=== PATIENT | male | born 1990 | race Two or more races ===

== ENCOUNTER 2024-12-26 09:35 | Day surgery (SDC) | payer MEDICAID ==
[2024-12-23 12:46] LABS: Hematocrit 46.6 % (41.0-53.0); Hemoglobin 16.2 g/dL (13.5-17.5); Mean Corpuscular Hemoglobin 31.4 pg (28.0-32.0); Mean Corpuscular Hgb Conc. 34.8 g/dL (32.0-36.0); Mean Corpuscular Volume 90.3 fL (80.0-100.0); Platelet Count (auto) 308 10^3/uL (140-450); Red Blood Cells 5.16 10^6/uL (4.5-5.90); Red Cell Distribution Width 12.9 % (11.8-14.3)
[2024-12-23 12:52] LABS: Band Neutrophils % (manual) 0; Basophils % (manual) 0 (0.0-2.0); Blast Cells 0; Metamyelocytes % 0; Myelocytes % 0; Promyelocytes % 0; Reactive Lymphocytes 0
[2024-12-23 13:12] LABS: INR 1.02 (0.9-1.15); Partial Thromboplastin Time 30.9 SEC (24.5-34.5); Prothrombin Time 10.8 sec (9.3-11.8)
[2024-12-23 13:31] LABS: Alanine Aminotransferase 17 U/L (7-40); Alkaline Phosphatase 65 U/L (46-116); Anion Gap 6 (5-15); BUN/Creatinine Ratio 16.7 (10.0-20.0); Blood Urea Nitrogen 15 mg/dL (9-23); Calcium 10.3 mg/dL (8.7-10.4); Carbon Dioxide 29 mmol/L (20-31); Chloride 106 mmol/L (98-107); Glucose 99 mg/dL (74-106); Sodium 141 mmol/L (136-145); Total Protein 7.6 g/dL (5.7-8.2)
[2024-12-23 13:32] LABS: Bilirubin, Total 0.5 mg/dL (0.2-1.0)
[2024-12-23 13:33] LABS: Albumin 5.1 g/dL (3.2-4.8); Aspartate Aminotransferase 11 U/L (13-40)
[2024-12-23 13:48] LABS: Eosinophils % (manual) 25 (0-7); Lymphocytes % (manual) 34 (10.0-50.0); Monocytes % (manual) 7 (0-12); Platelet Estimate Adequate; RBC Morphology Normal
[~2024-12-26] VITALS: Ht 175.3 cm; Wt 80.7 kg
[2024-12-26] MEDS ORDERED: diphenhdrAMINE HCL 50 MG/1 ML VL ONE (10:49)
[2024-12-26] MEDS: fentaNYL CITRATE 100 MCG/2 ML VL ONE (11:15)
[2024-12-26] MEDS: MIDAZOLAM HCL 2MG/2ML 2ml VIAL (1mg/ml) ONE (11:15)
[2024-12-26 11:31] VITALS: PULSE 71; RESP 17; TEMP 97.7; O2SAT 97
--- NOTE | 2024-12-26 12:11 | DVHNC2 ---
Procedure - DATE OF PROCEDURE: December 26, 2024 SURGEON: VIDYA HOYT MD REFERRING PROVIDER: [facility] PROCEDURE PERFORMED: 1. Colonoscopy with moderate sedation 2. Colonoscopy with cold biopsy polypectomy PRE-PROCEDURE DIAGNOSIS: 1. Abdominal pain POSTPROCEDURE DIAGNOSIS: 1. Small sigmoid polyp otherwise normal colonoscopy 2. Small internal hemorrhoids INDICATIONS FOR PROCEDURE: The patient is a 34-year-old male with chronic lower abdominal pain presents for outpatient colonoscopy MEDICATIONS USED: 4 mg of Versed IV and 100 mcg IV given in incremental doses DETAILS OF THE PROCEDURE: Informed consent was obtained after risks, benefits, and alternatives, were discussed at length with the patient. The patient gave consent to the procedure as well as the medication used for sedation. The patient was placed in the left lateral decubitus position. Digital rectal exam showed no abnormalities. An Olympus variable torsion adult colonoscope was inserted into the rectum and advanced to the cecum. The cecum was identified by the ileocecal valve and the appendiceal orifice. The scope was then withdrawn. The prep was excellent with only small amounts of liquid stool. There were no large polyps masses strictures or arteriovenous malformations. The patient had one small colon polyp measuring 3 mm removed completely with cold biopsy forceps. Retroflexion showed internal hemorrhoids. More than 6 minutes of withdrawal time was noted. The patient tolerated the procedure well [place] BOWEL PREP SCORE: 9 COLONOSCOPY START TIME: 1120 CECUM TIME: 1121 COLONOSCOPY END TIME: 1128 IMPRESSION: 1. Small colon polyp and internal hemorrhoids 2. No findings to explain the patient's symptoms of abdominal pain RECOMMENDATIONS: 1. Follow up in GI clinic for procedure results 2. High-fiber diet 3. Follow up with primary care physician 4. Repeat colonoscopy pending pathology 5. Consider IBS 6. Consider further workup I WOULD LIKE TO THANK [facility] FOR THIS REFERRAL VIDYA HOYT MD Dec 26, 2024 12:11
[2024-12-26 12:45] VITALS: BP 115/75; PULSE 65; RESP 14; O2SAT 96
== END 2024-12-26 13:00 | disposition home or self-care (01) ==
LOC: GI 09:35
PROVIDERS: ATTEND Specialist
DX: R10.32 Left lower quadrant pain (principal); K63.5 Polyp of colon; K64.8 Other hemorrhoids; Z79.899 Other long term (current) drug therapy
CPT/HCPCS: 36415; 45380; 80053; 85007; 85027; 85610; 85730; 88305; J2250; J3010; 99152